=== PATIENT | male | born 1985 | race Asian ===

== ENCOUNTER → 2018-07-31 | Outpatient (CLI) | payer BC ==
[~2018-07-31] MED LIST: IOPAMIDOL (ISOVUE 370) 100 ML BTL IV ONE
== END ==
LOC: FIMAGING 15:16
PROVIDERS: ATTEND Internal Medicine
DX: K76.9 Liver disease, unspecified (principal); M85.651 Other cyst of bone, right thigh
CPT/HCPCS: Q9967